=== PATIENT | male | born 1975 | race Caucasian/White ===

== ENCOUNTER 2020-07-10 16:27 | Emergency (ER) | payer SELFPAY ==
[~2020-07-10] VITALS: Ht 188 cm; Wt 114.0 kg
[2020-07-10] MEDS ORDERED: LIDOCAINE 1%/EPI 1:100,000 10 ML VIAL IJ ONE (19:45)
[2020-07-10] MEDS ORDERED: BACITRACIN ZINC OINT UDPKT TOP ONE (19:45)
[2020-07-10] MEDS ORDERED: TETANUS, DIPHTHERIA, PERTUSSIS VAC/PF 0.5ML (>7YR OLD) IM ONE (19:45)
[2020-07-10] MEDS ORDERED: IBUPROFEN 600MG TABLET PO ONE (20:30)
[2020-07-10 20:42] VITALS: BP 164/91
== END 2020-07-10 20:43 | disposition home or self-care (01) ==
LOC: ER 16:27
DX: S61.412A Laceration without foreign body of left hand, initial encounter (principal); Z98.890 Other specified postprocedural states; W26.0XXA Contact with knife, initial encounter; Y93.89 Activity, other specified; Y92.89 Other specified places as the place of occurrence of the external cause; Y99.8 Other external cause status
CPT/HCPCS: 12002; 90471; 90715; 99283; J3490; Z7610

== ENCOUNTER 2020-07-12 10:10 | Emergency (ER) | payer OTHER ==
[~2020-07-12] VITALS: Ht 188 cm; Wt 113.0 kg
[2020-07-12 10:12] VITALS: BP 166/98
== END 2020-07-12 10:33 | disposition home or self-care (01) ==
LOC: ER 10:10
DX: Z48.00 Encounter for change or removal of nonsurgical wound dressing (principal)
CPT/HCPCS: 99281